=== PATIENT | male | born 1935 | race Caucasian/White ===

== ENCOUNTER → 2018-04-17 | Outpatient (REF) | payer MEDICARE ==
[~2018-04-17] MED LIST: AMARYL1 M1 PO; ASPIRIN LOW DOS81 M2 PO; CARVEDILOL25 MG PO; CLONIDINE0.1 MG PO; FLOMAX0.4 M1 PO; HYDRALAZINE50 MG PO; LISINOPRIL2.5 MG PO; METFORMIN500 MG PO; NORVASC2.5 MG PO; OXYCODONE HCL5 MG PO; SIMVASTATIN20 MG PO; TIMOLOL 0.25%5 ML OU; XANAX0.5 MG PO; ZOLPIDEM10 M1 PO
[2018-04-17 08:37] LABS: ALBUMIN 4.1 g/dL (3.2-5.0); ALKALINE PHOSPHATASE 51 u/l (38-126); ANION GAP 14 (6-22 (CALC)); BILIRUBIN, TOTAL 1.3 mg/dL (0.0-1.4); BUN 23 mg/dL (8-23); BUN/CREATININE RATIO 22 (12-20 (CALC)); CARBON DIOXIDE 26 mmol/l (22-30); CHLORIDE 103 mmol/l (95-108); GFR > 60 ML/MIN (>=60 (CALC)); GFR FOR AFR.AMER. > 60 ML/MIN (>=60 (CALC)); POTASSIUM 4.7 mmol/l (3.5-5.1); SGOT/AST 18 u/l (19-48); SODIUM 139 mmol/l (137-146); TOTAL PROTEIN 6.7 g/dL (6.3-8.2)
== END | disposition home or self-care (01) ==
LOC: LAB 07:31
PROVIDERS: ATTEND Internal Medicine
DX: E11.42 Type 2 diabetes mellitus with diabetic polyneuropathy (principal); Z12.5 Encounter for screening for malignant neoplasm of prostate

== ENCOUNTER 2021-03-14 06:58 | Day surgery (SDC) | payer MEDICARE ==
[~2021-03-14] VITALS: Ht 170.2 cm; Wt 69.9 kg
[~2021-03-14 06:58] MED LIST changes: +AMLODIPINE BESY10 MG PO; +AVODART0.5 MG PO; +CINNAMON500 MG PO; +DAILY FIBER PO; +FINASTERIDE5 MG PO; +FISH OIL1000 MG PO; +LASIX20 MG PO; +LISINOPRIL20 MG PO; +MULTI VIT PO; +PRAVASTATIN SOD20 MG PO; +TAMSULOSIN HCL0.4 MG PO; +TEMAZEPAM15 MG PO
[2021-03-14] MEDS ORDERED: PERCOCET 5/325M1 TAB PO (10:03)
[2021-03-14 11:00] VITALS: BP 166/76
== END 2021-03-14 11:10 | disposition home or self-care (01) ==
LOC: ORM 06:58
PROVIDERS: ATTEND Surgery
PROC: 0YU50JZ Supplement Right Inguinal Region with Synthetic Substitute, Open Approach (ICD-10-PCS; principal; 2021-03-14)
PROC: 0VBF0ZZ Excision of Right Spermatic Cord, Open Approach (ICD-10-PCS; 2021-03-14)
DX: K40.90 Unilateral inguinal hernia, without obstruction or gangrene, not specified as recurrent (principal); D17.6 Benign lipomatous neoplasm of spermatic cord; I10 Essential (primary) hypertension
CPT/HCPCS: C9290; J0131

== ENCOUNTER 2021-06-04 03:50 | Emergency (ER) | payer MEDICARE ==
[~2021-06-04] VITALS: Ht 170.2 cm; Wt 70.0 kg
[~2021-06-04 03:50] MED LIST changes: +PERCOCET 5/325M1 TAB PO
[2021-06-04 04:47] LABS: MEAN CELL VOLUME 99.1 fL CALC (80.0-100.0); MEAN CORPUSCULAR HGB 34.4 pG CALC (26.0-32.0); MEAN CORPUSCULAR HGB CONC 34.7 g/dL CAL (32.0-36.0); NEUT# 3.51 thou/uL (1.82-7.42); RED BLOOD COUNT 2.21 mill/uL (4.70-6.10); RED CELL DISTRI WIDTH 12.6 % (11.5-15.5)
[2021-06-04 04:48] LABS: HEMATOCRIT 21.9 % (39.0-50.0); HEMOGLOBIN 7.6 g/dl (14.0-18.0)
[2021-06-04 05:04] LABS: ALBUMIN 3.7 g/dL (3.2-5.0); BILIRUBIN, TOTAL 0.7 mg/dL (0.0-1.4); TOTAL PROTEIN 6.7 g/dL (6.3-8.2)
[2021-06-04 05:08] LABS: CREATININE 4.9 mg/dL (0.7-1.3); POTASSIUM 5.2 mmol/l (3.5-5.1)
[2021-06-04 06:01] LABS: ACT PARTIAL THROMBO TIME 23.2 SECONDS (20.0-32.5); PROTHROMBIN TIME 10.2 SECONDS (9.0-12.5)
[2021-06-04 06:35] VITALS: BP 187/73
== END 2021-06-04 06:59 | disposition short-term general hospital (02) ==
LOC: ED 03:50
PROVIDERS: Emergency Medicine
PROC: 5A09357 Assistance with Respiratory Ventilation, Less than 24 Consecutive Hours, Continuous Positive Airway Pressure (ICD-10-PCS; principal; 2021-06-04)
DX: J81.0 Acute pulmonary edema (principal); N17.9 Acute kidney failure, unspecified; R79.89 Other specified abnormal findings of blood chemistry; R09.02 Hypoxemia; D64.9 Anemia, unspecified; I10 Essential (primary) hypertension; E11.9 Type 2 diabetes mellitus without complications; Z79.84 Long term (current) use of oral hypoglycemic drugs; Z20.822 Contact with and (suspected) exposure to COVID-19

== ENCOUNTER 2021-06-25 05:56 | Emergency (ER) | payer MEDICARE ==
[2021-06-25] VITALS (10 sets, daily range): BP systolic 111–142; BP diastolic 49–59
[~2021-06-25] VITALS: Ht 170.2 cm; Wt 79.5 kg
[2021-06-25] MEDS ORDERED: ASPIRIN81 MG PO (06:21)
[2021-06-25] MEDS ORDERED: GLIMEPIRIDE2 MG PO (06:25)
[2021-06-25] MEDS ORDERED: HYDRALAZINE50 MG PO (06:27)
[2021-06-25 06:30] LABS: IMMATURE GRANULOCYTES 0.7 % (0.0-5.0); MEAN CELL VOLUME 98.6 fL CALC (80.0-100.0); MEAN CORPUSCULAR HGB 33.8 pG CALC (26.0-32.0); MEAN CORPUSCULAR HGB CONC 34.2 g/dL CAL (32.0-36.0); NEUT# 4.16 thou/uL (1.82-7.42); RED BLOOD COUNT 1.48 mill/uL (4.70-6.10); RED CELL DISTRI WIDTH 12.7 % (11.5-15.5)
[2021-06-25] MEDS ORDERED: MULTI VIT PO (06:31)
[2021-06-25] MEDS ORDERED: NIFEDIPINE60 MG PO (06:32)
[2021-06-25 06:38] LABS: HEMATOCRIT 14.6 % (39.0-50.0)
[2021-06-25 06:46] LABS: BILIRUBIN, TOTAL 0.4 mg/dL (0.0-1.4); CREATININE 2.9 mg/dL (0.7-1.3); POTASSIUM 4.3 mmol/l (3.5-5.1)
[2021-06-25 06:48] LABS: ACT PARTIAL THROMBO TIME 21.6 SECONDS (20.0-32.5); ALBUMIN 2.3 g/dL (3.2-5.0); INTERNATIONAL NORMALIZED RATIO 1.1 RATIO (0.7-1.3); PROTHROMBIN TIME 11.7 SECONDS (9.0-12.5); TOTAL PROTEIN 4.5 g/dL (6.3-8.2)
== END 2021-06-25 08:42 | disposition short-term general hospital (02) ==
LOC: ED 05:56
PROVIDERS: Family Medicine
PROC: 30233N1 Transfusion of Nonautologous Red Blood Cells into Peripheral Vein, Percutaneous Approach (ICD-10-PCS; principal; 2021-06-25)
DX: K92.1 Melena (principal); D64.9 Anemia, unspecified; N17.9 Acute kidney failure, unspecified; I12.0 Hypertensive chronic kidney disease with stage 5 chronic kidney disease or end stage renal disease; E11.22 Type 2 diabetes mellitus with diabetic chronic kidney disease; N18.6 End stage renal disease; K64.4 Residual hemorrhoidal skin tags; Z99.2 Dependence on renal dialysis; Z79.84 Long term (current) use of oral hypoglycemic drugs; Z20.822 Contact with and (suspected) exposure to COVID-19
CPT/HCPCS: P9016; S0164

== ENCOUNTER 2021-10-18 16:37 | Observation (INO) | payer MEDICARE ==
[~2021-10-18] VITALS: Ht 170.2 cm; Wt 79.5 kg
[2021-10-18] VITALS (10 sets, daily range): BP systolic 135–198; BP diastolic 55–80
[~2021-10-18 16:37] MED LIST changes: +ASPIRIN81 MG PO; +GLIMEPIRIDE2 MG PO; +NIFEDIPINE60 MG PO
[2021-10-18 17:34] LABS: HEMOGLOBIN 10.4 g/dl (14.0-18.0); IMMATURE GRANULOCYTES 0.8 % (0.0-5.0); MEAN CELL VOLUME 103.7 fL CALC (80.0-100.0); MEAN CORPUSCULAR HGB 34.8 pG CALC (26.0-32.0); MEAN CORPUSCULAR HGB CONC 33.5 g/dL CAL (32.0-36.0); NEUT# 5.86 thou/uL (1.82-7.42); RED BLOOD COUNT 2.99 mill/uL (4.70-6.10)
[2021-10-18 17:53] LABS: ALBUMIN 3.8 g/dL (3.2-5.0); CREATININE 2.1 mg/dL (0.7-1.3); POTASSIUM 3.4 mmol/l (3.5-5.1); TOTAL PROTEIN 6.8 g/dL (6.3-8.2)
[2021-10-18 18:41] LABS: URINE BILIRUBIN - DIPSTICK NEGATIVE (NEGATIVE); URINE BLOOD DIPSTICK MODERATE (NEGATIVE); URINE CLARITY CLEAR; URINE COLOR YELLOW; URINE GLUCOSE - DIPSTICK NEGATIVE (NEGATIVE); URINE KETONE NEGATIVE (NEGATIVE); URINE LEUK ESTERASE NEGATIVE (Negative); URINE NITRITE - DIPSTICK NEGATIVE (Negative); URINE PH 5.5 (4.5-8.0); URINE PROTEIN - DIPSTICK 30 mg/dL (NEG-TRACE); URINE SPECIFIC GRAVITY 1.025; URINE UROBILINOGEN - DIPSTICK 0.2 E.U./dL (0.2)
[2021-10-18 18:54] LABS: URINE WBC 0-2 WBC/hpf (0-5)
[2021-10-19 04:35] VITALS: BP 150/58
[2021-10-19 06:26] LABS: HEMATOCRIT 28.4 % (39.0-50.0); HEMOGLOBIN 9.7 g/dl (14.0-18.0); IMMATURE GRANULOCYTES 0.4 % (0.0-5.0); MEAN CELL VOLUME 103.3 fL CALC (80.0-100.0); MEAN CORPUSCULAR HGB 35.3 pG CALC (26.0-32.0); MEAN CORPUSCULAR HGB CONC 34.2 g/dL CAL (32.0-36.0); NEUT# 2.91 thou/uL (1.82-7.42); RED BLOOD COUNT 2.75 mill/uL (4.70-6.10); RED CELL DISTRI WIDTH 13.9 % (11.5-15.5)
[2021-10-19 06:33] LABS: ALBUMIN 3.1 g/dL (3.2-5.0); BILIRUBIN, TOTAL 0.6 mg/dL (0.0-1.4); CREATININE 2.7 mg/dL (0.7-1.3); POTASSIUM 3.4 mmol/l (3.5-5.1); TOTAL PROTEIN 5.6 g/dL (6.3-8.2)
[2021-10-19 07:30] VITALS: BP 176/65
[2021-10-19 08:49] VITALS: BP 176/65
[2021-10-19 09:10] VITALS: BP 162/58
[2021-10-19 12:08] LABS: URINE BLOOD DIPSTICK LARGE (NEGATIVE); URINE GLUCOSE - DIPSTICK NEGATIVE (NEGATIVE); URINE KETONE TRACE mg/dL (NEGATIVE); URINE LEUK ESTERASE TRACE (Negative); URINE NITRITE - DIPSTICK POSITIVE (Negative); URINE PROTEIN - DIPSTICK >=300 mg/dL (NEG-TRACE); URINE SPECIFIC GRAVITY 1.025; URINE UROBILINOGEN - DIPSTICK 0.2 E.U./dL (0.2)
[2021-10-19 12:11] VITALS: BP 127/52
[2021-10-19 12:19] LABS: URINE BILIRUBIN - DIPSTICK SMALL (NEGATIVE); URINE CLARITY CLOUDY; URINE COLOR BROWN
[2021-10-19 12:22] LABS: URINE BACTERIA FEW hpf; URINE EPITHELIAL CELLS FEW EPI/hpf (0-FEW); URINE RBC 25-50 RBC/hpf (0-5); URINE WBC 0-2 WBC/hpf (0-5)
== END 2021-10-19 14:15 | disposition home or self-care (01) ==
LOC: ED 16:37 → ED-I 19:00 → ED 19:24 → MS2 19:25
PROVIDERS: Emergency Medicine; Nurse Practitioner; ADMIT Internal Medicine; ATTEND Internal Medicine
PROC: 0T9B70Z Drainage of Bladder with Drainage Device, Via Natural or Artificial Opening (ICD-10-PCS; principal; 2021-10-18)
DX: I12.0 Hypertensive chronic kidney disease with stage 5 chronic kidney disease or end stage renal disease (principal); E11.22 Type 2 diabetes mellitus with diabetic chronic kidney disease; N18.6 End stage renal disease; N40.1 Benign prostatic hyperplasia with lower urinary tract symptoms; R33.8 Other retention of urine; E78.00 Pure hypercholesterolemia, unspecified; Z99.2 Dependence on renal dialysis; Z79.84 Long term (current) use of oral hypoglycemic drugs
CPT/HCPCS: G0378

== ENCOUNTER 2021-10-21 12:44 | Emergency (ER) | payer MEDICARE ==
[2021-10-21] VITALS (9 sets, daily range): BP systolic 141–170; BP diastolic 55–65
[~2021-10-21] VITALS: Ht 170.2 cm; Wt 64.5 kg
[2021-10-21 15:34] LABS: URINE BILIRUBIN - DIPSTICK NEGATIVE (NEGATIVE); URINE BLOOD DIPSTICK LARGE (NEGATIVE); URINE COLOR YELLOW; URINE GLUCOSE - DIPSTICK NEGATIVE (NEGATIVE); URINE KETONE NEGATIVE (NEGATIVE); URINE PROTEIN - DIPSTICK NEGATIVE (NEG-TRACE); URINE SPECIFIC GRAVITY <=1.005; URINE UROBILINOGEN - DIPSTICK 0.2 E.U./dL (0.2)
[2021-10-21 15:35] LABS: URINE LEUK ESTERASE MODERATE (NEGATIVE); URINE NITRITE - DIPSTICK NEGATIVE (Negative); URINE SQUAMOUS EPITHELIAL CELL FEW EPI/hpf (0-FEW)
[2021-10-21 15:36] LABS: URINE BACTERIA MODERATE hpf
[2021-10-21 15:46] LABS: HEMATOCRIT 25.7 % (39.0-50.0); HEMOGLOBIN 8.8 g/dl (14.0-18.0); IMMATURE GRANULOCYTES 0.6 % (0.0-5.0); MEAN CELL VOLUME 102.8 fL CALC (80.0-100.0); MEAN CORPUSCULAR HGB 35.2 pG CALC (26.0-32.0); MEAN CORPUSCULAR HGB CONC 34.2 g/dL CAL (32.0-36.0); RED BLOOD COUNT 2.5 mill/uL (4.70-6.10); RED CELL DISTRI WIDTH 13.6 % (11.5-15.5)
[2021-10-21 15:52] LABS: ALBUMIN 3.1 g/dL (3.2-5.0); BILIRUBIN, TOTAL 0.6 mg/dL (0.0-1.4); CREATININE 3.9 mg/dL (0.7-1.3); POTASSIUM 4.4 mmol/l (3.5-5.1); TOTAL PROTEIN 5.5 g/dL (6.3-8.2)
[2021-10-21] MEDS ORDERED: CEPHALEXIN500 M1 PO (16:25)
== END 2021-10-21 16:33 | disposition home or self-care (01) ==
LOC: ED 12:44
PROVIDERS: Family Medicine
DX: E87.1 Hypo-osmolality and hyponatremia (principal); N39.0 Urinary tract infection, site not specified; B96.5 Pseudomonas (aeruginosa) (mallei) (pseudomallei) as the cause of diseases classified elsewhere; I12.0 Hypertensive chronic kidney disease with stage 5 chronic kidney disease or end stage renal disease; N18.6 End stage renal disease

== ENCOUNTER 2022-01-30 12:07 | Observation (INO) | payer MEDICARE ==
[2022-01-30] VITALS (18 sets, daily range): BP systolic 106–139; BP diastolic 51–65
[~2022-01-30] VITALS: Ht 170.2 cm; Wt 61.2 kg
[~2022-01-30 12:07] MED LIST changes: +CEPHALEXIN500 M1 PO
[2022-01-30 12:34] LABS: IMMATURE GRANULOCYTES 1.2 % (0.0-5.0); MEAN CELL VOLUME 97.8 fL CALC (80.0-100.0); MEAN CORPUSCULAR HGB 33.8 pG CALC (26.0-32.0); MEAN CORPUSCULAR HGB CONC 34.6 g/dL CAL (32.0-36.0); RED BLOOD COUNT 4.14 mill/uL (4.70-6.10); RED CELL DISTRI WIDTH 13.7 % (11.5-15.5)
[2022-01-30 12:38] LABS: HEMATOCRIT 40.5 % (39.0-50.0)
[2022-01-30 13:11] LABS: URINE BILIRUBIN - DIPSTICK NEGATIVE (NEGATIVE); URINE BLOOD DIPSTICK LARGE (NEGATIVE); URINE COLOR YELLOW; URINE GLUCOSE - DIPSTICK 100 mg/dL (NEGATIVE); URINE KETONE TRACE mg/dL (NEGATIVE); URINE PH 5.5 (4.5-8.0); URINE PROTEIN - DIPSTICK 100 mg/dL (NEG-TRACE); URINE UROBILINOGEN - DIPSTICK 0.2 E.U./dL (0.2)
[2022-01-30 13:16] LABS: URINE BACTERIA FEW hpf; URINE EPITHELIAL CELLS MODERATE EPI/hpf (0-FEW); URINE LEUK ESTERASE SMALL (NEGATIVE); URINE NITRITE - DIPSTICK NEGATIVE (Negative)
[2022-01-30 13:17] LABS: URINE MUCUS FEW hpf (NONE-FEW)
[2022-01-30 13:30] LABS: ALBUMIN 4.3 g/dL (3.2-5.0); BILIRUBIN, TOTAL 1.3 mg/dL (0.0-1.4); CREATININE 2.3 mg/dL (0.7-1.3); POTASSIUM 3.5 mmol/l (3.5-5.1); TOTAL PROTEIN 7.6 g/dL (6.3-8.2)
[2022-01-30] MEDS ORDERED: TRAZODONE50 MG PO (16:17)
[2022-01-30] MEDS ORDERED: RYBELSUS7 MG PO (16:18)
[2022-01-30] MEDS ORDERED: PROTONIX40 M2 PO (16:19)
[2022-01-30] MEDS ORDERED: TRAMADOL HCL50 MG (16:21)
[2022-01-30] MEDS ORDERED: LACTULOSE10 GM/15 M (16:22)
[2022-01-31 04:00] VITALS: BP 165/66
[2022-01-31 04:39] VITALS: BP 165/66
[2022-01-31 06:54] LABS: MAGNESIUM 1.6 mg/dL (1.6-2.3); POTASSIUM 3.6 mmol/l (3.5-5.1)
[2022-01-31 07:05] LABS: CREATININE 3.7 mg/dL (0.7-1.3)
[2022-01-31 07:07] VITALS: BP 178/70
[2022-01-31 07:33] VITALS: BP 178/70
[2022-01-31 11:45] VITALS: BP 144/86
[2022-01-31] MEDS ORDERED: KEFLEX500 MG PO (12:01)
[2022-01-31] MEDS ORDERED: TEMAZEPAM15 MG PO (12:01)
== END 2022-01-31 12:45 ==
LOC: ED 12:07 → ED-I 15:00 → ED 15:14 → MS2 15:15
PROVIDERS: Family Medicine; ADMIT Internal Medicine; ATTEND Internal Medicine
DX: N39.0 Urinary tract infection, site not specified (principal); I12.0 Hypertensive chronic kidney disease with stage 5 chronic kidney disease or end stage renal disease; E11.22 Type 2 diabetes mellitus with diabetic chronic kidney disease; N18.6 End stage renal disease; B96.5 Pseudomonas (aeruginosa) (mallei) (pseudomallei) as the cause of diseases classified elsewhere; Z99.2 Dependence on renal dialysis; Z79.84 Long term (current) use of oral hypoglycemic drugs

== ENCOUNTER 2022-02-22 19:31 | Emergency (ER) | payer MEDICARE ==
[~2022-02-22] VITALS: Ht 167.6 cm; Wt 60.0 kg
[~2022-02-22 19:31] MED LIST changes: +KEFLEX500 MG PO; +LACTULOSE10 GM/15 M; +PROTONIX40 M2 PO; +RYBELSUS7 MG PO; +TRAMADOL HCL50 MG; +TRAZODONE50 MG PO
[2022-02-22] MEDS ORDERED: ULTRAM50 MG PO (23:56)
[2022-02-23 00:14] VITALS: BP 164/74
== END 2022-02-23 00:14 | disposition home or self-care (01) ==
LOC: ED 19:31
DX: S40.022A Contusion of left upper arm, initial encounter (principal); I12.0 Hypertensive chronic kidney disease with stage 5 chronic kidney disease or end stage renal disease; E11.22 Type 2 diabetes mellitus with diabetic chronic kidney disease; N18.6 End stage renal disease; W01.0XXA Fall on same level from slipping, tripping and stumbling without subsequent striking against object, initial encounter; Y93.89 Activity, other specified; Y92.007 Garden or yard of unspecified non-institutional (private) residence as the place of occurrence of the external cause; Z99.2 Dependence on renal dialysis

== ENCOUNTER 2022-09-05 15:21 | Observation (INO) | payer MEDICARE ==
[2022-09-05] VITALS (19 sets, daily range): BP systolic 87–116; BP diastolic 34–71
[~2022-09-05] VITALS: Ht 167.6 cm; Wt 63.4 kg
[~2022-09-05 15:21] MED LIST changes: +ULTRAM50 MG PO
[2022-09-05 16:45] LABS: BASO% 0.1 % (0-3); EOS% 0.1 % (0-8); LYMPH% 4.5 % (15-41); MEAN CORPUSCULAR HGB 35.6 pG CALC (26.0-32.0); MEAN CORPUSCULAR HGB CONC 33.3 g/dL CAL (32.0-36.0); MONO% 10.3 % (2-13); NEUT# 8.77 thou/uL (1.82-7.42); RED BLOOD COUNT 2.05 mill/uL (4.70-6.10); RED CELL DISTRI WIDTH 14.8 % (11.5-15.5)
[2022-09-05 16:46] LABS: HEMATOCRIT 21.9 % (39.0-50.0); HEMOGLOBIN 7.3 g/dl (14.0-18.0); MEAN CELL VOLUME 106.8 fL CALC (80.0-100.0)
[2022-09-05 17:11] LABS: ALBUMIN 3.8 g/dL (3.2-5.0); BILIRUBIN, TOTAL 1.4 mg/dL (0.2-1.3); POTASSIUM 3.6 mmol/l (3.5-5.1); TOTAL PROTEIN 6.9 g/dL (6.3-8.2)
[2022-09-05 17:14] LABS: CREATININE 2.2 mg/dL (0.7-1.3)
[2022-09-05] MEDS ORDERED: NOVOLOG100 UNIT (17:35)
[2022-09-05] MEDS ORDERED: TRESIBA100 UNIT/M (17:36)
[2022-09-05] MEDS ORDERED: TRESIBA FL100 UNIT/M (17:36)
[2022-09-05] MEDS ORDERED: PANTOPRAZOLE SO40 M3 (17:37)
[2022-09-06] VITALS (9 sets, daily range): BP systolic 90–109; BP diastolic 34–42
[2022-09-06 08:45] LABS: HEMATOCRIT 27.6 % (39.0-50.0); HEMOGLOBIN 9.1 g/dl (14.0-18.0); MEAN CORPUSCULAR HGB 31.9 pG CALC (26.0-32.0); RED BLOOD COUNT 2.85 mill/uL (4.70-6.10); RED CELL DISTRI WIDTH 18.1 % (11.5-15.5)
[2022-09-06 09:09] LABS: ALBUMIN 3.1 g/dL (3.2-5.0); BILIRUBIN, TOTAL 1.3 mg/dL (0.2-1.3); MAGNESIUM 1.9 mg/dL (1.6-2.3); POTASSIUM 3.9 mmol/l (3.5-5.1); TOTAL PROTEIN 5.7 g/dL (6.3-8.2)
[2022-09-06 09:12] LABS: CREATININE 3.7 mg/dL (0.7-1.3)
[2022-09-06 09:37] LABS: MEAN CELL VOLUME 96.8 fL CALC (80.0-100.0)
== END 2022-09-06 12:15 | disposition home or self-care (01) ==
LOC: ED 15:21 → MS2 18:09
PROVIDERS: Nurse Practitioner; ADMIT Internal Medicine; ATTEND Internal Medicine
PROC: 30233N1 Transfusion of Nonautologous Red Blood Cells into Peripheral Vein, Percutaneous Approach (ICD-10-PCS; principal; 2022-09-05)
PROC: 30233N1 Transfusion of Nonautologous Red Blood Cells into Peripheral Vein, Percutaneous Approach (ICD-10-PCS; 2022-09-06)
DX: D62 Acute posthemorrhagic anemia (principal); I12.0 Hypertensive chronic kidney disease with stage 5 chronic kidney disease or end stage renal disease; E11.22 Type 2 diabetes mellitus with diabetic chronic kidney disease; N18.6 End stage renal disease; E78.5 Hyperlipidemia, unspecified; Z99.2 Dependence on renal dialysis; Z79.4 Long term (current) use of insulin; Z20.822 Contact with and (suspected) exposure to COVID-19
CPT/HCPCS: P9016

== ENCOUNTER 2022-09-14 11:14 | Emergency (ER) | payer MEDICARE ==
[2022-09-14] VITALS (14 sets, daily range): BP systolic 114–162; BP diastolic 53–85
[~2022-09-14] VITALS: Ht 170.2 cm; Wt 61.0 kg
[~2022-09-14 11:14] MED LIST changes: +NOVOLOG100 UNIT; +PANTOPRAZOLE SO40 M3; +TRESIBA FL100 UNIT/M; +TRESIBA100 UNIT/M
[2022-09-14] MEDS ORDERED: ASPIRINCHW 81MG PO (11:24)
[2022-09-14] MEDS ORDERED: RESTORIL15 MG PO (11:39)
[2022-09-14] MEDS ORDERED: FINASTERIDE5 MG PO (11:39)
[2022-09-14 14:04] LABS: BASO% 0.2 % (0-3); EOS% 1.4 % (0-8); HEMATOCRIT 28.1 % (39.0-50.0); HEMOGLOBIN 9.2 g/dl (14.0-18.0); IMMATURE GRANULOCYTES 3.6 % (0.0-5.0); LYMPH% 15.4 % (15-41); MEAN CORPUSCULAR HGB 32.7 pG CALC (26.0-32.0); MEAN CORPUSCULAR HGB CONC 32.7 g/dL CAL (32.0-36.0); MONO% 8.2 % (2-13); NEUT# 3.98 thou/uL (1.82-7.42); NEUT% 71.2 % (42-76); RED BLOOD COUNT 2.81 mill/uL (4.70-6.10); RED CELL DISTRI WIDTH 16.2 % (11.5-15.5)
[2022-09-14 14:15] LABS: ALBUMIN 3.5 g/dL (3.2-5.0); POTASSIUM 4.6 mmol/l (3.5-5.1); TOTAL PROTEIN 6.3 g/dL (6.3-8.2)
[2022-09-14 14:18] LABS: BILIRUBIN, TOTAL 0.7 mg/dL (0.2-1.3)
[2022-09-14 14:20] LABS: CREATININE 5.7 mg/dL (0.7-1.3)
== END 2022-09-14 17:07 | disposition short-term general hospital (02) ==
LOC: ED 11:14
PROVIDERS: Nurse Practitioner
DX: T82.590A Other mechanical complication of surgically created arteriovenous fistula, initial encounter (principal); E11.22 Type 2 diabetes mellitus with diabetic chronic kidney disease; I12.0 Hypertensive chronic kidney disease with stage 5 chronic kidney disease or end stage renal disease; N18.6 End stage renal disease; D63.1 Anemia in chronic kidney disease; Y83.2 Surgical operation with anastomosis, bypass or graft as the cause of abnormal reaction of the patient, or of later complication, without mention of misadventure at the time of the procedure; Z99.2 Dependence on renal dialysis; Z79.4 Long term (current) use of insulin

== ENCOUNTER 2023-02-22 19:28 | Emergency (ER) | payer MEDICARE ==
[~2023-02-22] VITALS: Ht 170.2 cm; Wt 63.5 kg
[~2023-02-22 19:28] MED LIST changes: +ASPIRINCHW 81MG PO; +RESTORIL15 MG PO
[2023-02-22 19:41] VITALS: BP 144/60
[2023-02-22] MEDS ORDERED: PLAVIX75 MG PO (19:51)
[2023-02-22] MEDS ORDERED: AMBIEN5 MG PO (19:51)
[2023-02-22] MEDS ORDERED: TOPROL XL25 M1 PO (19:52)
[2023-02-22 20:01] VITALS: BP 116/52
[2023-02-22 20:11] LABS: BASO% 0.3 % (0-3); EOS% 0.7 % (0-8); HEMATOCRIT 29.6 % (39.0-50.0); HEMOGLOBIN 10.2 g/dl (14.0-18.0); LYMPH% 10.1 % (15-41); MEAN CELL VOLUME 101.4 fL CALC (80.0-100.0); MEAN CORPUSCULAR HGB 34.9 pG CALC (26.0-32.0); MEAN CORPUSCULAR HGB CONC 34.5 g/dL CAL (32.0-36.0); MONO% 9.7 % (2-13); NEUT# 2.25 thou/uL (1.82-7.42); NEUT% 78.2 % (42-76); RED BLOOD COUNT 2.92 mill/uL (4.70-6.10); RED CELL DISTRI WIDTH 14.6 % (11.5-15.5)
[2023-02-22 20:26] LABS: ALBUMIN 4.2 g/dL (3.2-5.0); TOTAL PROTEIN 6.8 g/dL (6.3-8.2)
[2023-02-22 20:27] LABS: BILIRUBIN, TOTAL 1.2 mg/dL (0.2-1.3); POTASSIUM 2.9 mmol/l (3.5-5.1)
[2023-02-22] MEDS ORDERED: ONDANSETRON4 MG PO (20:35)
[2023-02-22] MEDS ORDERED: TAMIFLU30 MG PO (20:35)
[2023-02-22 21:03] VITALS: BP 116/52
== END 2023-02-22 21:04 | disposition home or self-care (01) ==
LOC: ED 19:28
PROVIDERS: Family Medicine
DX: J10.1 Influenza due to other identified influenza virus with other respiratory manifestations (principal); E11.22 Type 2 diabetes mellitus with diabetic chronic kidney disease; I12.0 Hypertensive chronic kidney disease with stage 5 chronic kidney disease or end stage renal disease; N18.6 End stage renal disease; Z99.2 Dependence on renal dialysis; Z79.4 Long term (current) use of insulin; Z20.822 Contact with and (suspected) exposure to COVID-19

== ENCOUNTER 2023-10-02 08:26 | Emergency (ER) | payer MEDICARE ==
[2023-10-02] VITALS (11 sets, daily range): BP systolic 101–128; BP diastolic 49–61
[~2023-10-02] VITALS: Ht 170.2 cm; Wt 65.4 kg
[~2023-10-02 08:26] MED LIST changes: +AMBIEN5 MG PO; +ONDANSETRON4 MG PO; +PLAVIX75 MG PO; +TAMIFLU30 MG PO; +TOPROL XL25 M1 PO
[2023-10-02] MEDS ORDERED: methylPREDNISolone SODIUM SUCC 125 MG/2 ML SDV IV ONE (08:40)
[2023-10-02] MEDS ORDERED: IPRATROPIUM-Albuterol 0.5MG-2.5MG/3 ML NEB ONE ×2 (08:40)
[2023-10-02 09:05] LABS: BASO% 0.1 % (0-3); EOS% 2.2 % (0-8); HEMATOCRIT 31.3 % (39.0-50.0); HEMOGLOBIN 10.6 g/dl (14.0-18.0); IMMATURE GRANULOCYTES 2.3 % (0.0-5.0); LYMPH% 6.7 % (15-41); MEAN CELL VOLUME 102.3 fL CALC (80.0-100.0); MEAN CORPUSCULAR HGB 34.6 pG CALC (26.0-32.0); MEAN CORPUSCULAR HGB CONC 33.9 g/dL CAL (32.0-36.0); MONO% 5.8 % (2-13); NEUT# 6.43 thou/uL (1.82-7.42); NEUT% 82.9 % (42-76); RED BLOOD COUNT 3.06 mill/uL (4.70-6.10)
[2023-10-02 09:16] LABS: BILIRUBIN, TOTAL 0.9 mg/dL (0.2-1.3)
[2023-10-02 09:18] LABS: POTASSIUM 4.4 mmol/l (3.5-5.1)
[2023-10-02 09:22] LABS: CREATININE 8.2 mg/dL (0.7-1.3)
[2023-10-02] MEDS ORDERED: methylPREDNISolone SODIUM SUCC 125 MG/2 ML SDV IM ONE (09:30)
[2023-10-02] MEDS ORDERED: TRAMADOL HYDROC50 M1 PO (10:35)
== END 2023-10-02 11:19 | disposition home or self-care (01) ==
LOC: ED 08:26
PROVIDERS: Family Medicine
DX: M25.512 Pain in left shoulder (principal); M25.511 Pain in right shoulder; M25.562 Pain in left knee; M25.561 Pain in right knee; M25.572 Pain in left ankle and joints of left foot; M25.571 Pain in right ankle and joints of right foot; E11.22 Type 2 diabetes mellitus with diabetic chronic kidney disease; I12.0 Hypertensive chronic kidney disease with stage 5 chronic kidney disease or end stage renal disease; N18.6 End stage renal disease; Z99.2 Dependence on renal dialysis; E78.5 Hyperlipidemia, unspecified; Z79.4 Long term (current) use of insulin; Z85.51 Personal history of malignant neoplasm of bladder; Z20.822 Contact with and (suspected) exposure to COVID-19